=== PATIENT | female | born 1980 | race Caucasian/White ===

== ENCOUNTER → 2025-01-09 | Outpatient (CLI) | payer BC ==
[~2025-01-09] MED LIST: MOTRIN800 MG PO; PRENATAL1 TA1 PO; PRILOSEC10 MG PO; TRAMADOL HCL50 MG PO
== END | disposition home or self-care (01) ==
LOC: RAD 08:50
PROVIDERS: ATTEND Nurse Practitioner
DX: M54.2 Cervicalgia (principal); G89.29 Other chronic pain